=== PATIENT | male | born 1960 | race Caucasian/White ===

== ENCOUNTER 2017-03-27 14:05 | Emergency (ER) | payer MEDICAID ==
[~2017-03-27] VITALS: Ht 180.3 cm; Wt 117.9 kg
[2017-03-27] MEDS ORDERED: ASPIR-LOW81 MG PO (14:16)
[2017-03-27] MEDS ORDERED: SIMVASTATIN20 MG (14:17)
[2017-03-27] MEDS ORDERED: TOPROL XL50 MG PO (14:17)
[2017-03-27] MEDS ORDERED: SIMVASTATIN20 MG PO (14:17)
--- NOTE | 2017-03-28 06:59 | EKG ---
[facility] [address] [facility] [place] [address] Signed Sinus tachycardia Nonspecific T wave abnormality Abnormal ECG Confirmed by LYNNE ANDERSON MD ([id number] on 03/28/2017 6:59:06 AM Electronically Signed By: LYNNE ANDERSON MD 03/28/17 0659 PATIENT NAME: JAY JAY SOMERS Electrocardiogram DATE OF : 64 PHYSICIAN: LYNNE ANDERSON MD REPORT #: [id number] REPORT IS CONFIDENTIAL AND NOT TO BE RELEASED WITHOUT AUTHORIZATION
== END 2017-03-27 15:42 | disposition home or self-care (01) ==
LOC: ED 14:05
DX: R07.9 Chest pain, unspecified (principal); I10 Essential (primary) hypertension; I25.2 Old myocardial infarction; Z87.891 Personal history of nicotine dependence; Z79.82 Long term (current) use of aspirin; Z79.899 Other long term (current) drug therapy
CPT/HCPCS: 80053; 84484; 85025; 93005; 93010; 99284